=== PATIENT | male | born 1985 | race Caucasian/White ===

== ENCOUNTER 2019-03-01 20:12 | Emergency (ER) | payer SELFPAY ==
[~2019-03-01] VITALS: Ht 167.6 cm; Wt 60.0 kg
[2019-03-01 20:12] VITALS: BP 137/80
[2019-03-03] MEDS ORDERED: IPRATROPIUM 0.5MG/ALBUTEROL 2.5MG INH SOL UD 3ML (DUONEB)(J7620) As Ordered ONE (11:54)
== END 2019-03-01 20:54 | disposition left against medical advice (07) ==
LOC: M ED 20:12
DX: Z53.29 Procedure and treatment not carried out because of patient's decision for other reasons (principal)

== ENCOUNTER 2019-12-16 04:54 | Emergency (ER) | payer SELFPAY ==
[~2019-12-16] VITALS: Ht 167.6 cm; Wt 58.0 kg
[2019-12-16 04:55] VITALS: BP 93/70
== END 2019-12-16 05:51 | disposition left against medical advice (07) ==
LOC: M ED 04:54
DX: Z53.21 Procedure and treatment not carried out due to patient leaving prior to being seen by health care provider (principal)

== ENCOUNTER 2020-05-20 15:28 | Emergency (ER) | payer SELFPAY ==
[~2020-05-20] VITALS: Ht 167.6 cm; Wt 55.7 kg
[2020-05-20 17:30] VITALS: BP 122/73
== END 2020-05-20 17:31 | disposition home or self-care (01) ==
LOC: M ED 15:28
DX: K40.91 Unilateral inguinal hernia, without obstruction or gangrene, recurrent (principal); F31.9 Bipolar disorder, unspecified; J45.909 Unspecified asthma, uncomplicated; F90.9 Attention-deficit hyperactivity disorder, unspecified type; F17.200 Nicotine dependence, unspecified, uncomplicated; F12.10 Cannabis abuse, uncomplicated; Z88.0 Allergy status to penicillin; Z88.8 Allergy status to other drugs, medicaments and biological substances

== ENCOUNTER 2020-12-09 11:50 | Emergency (ER) | payer SELFPAY ==
[~2020-12-09] VITALS: Ht 167.6 cm; Wt 63.5 kg
[2020-12-09 11:51] VITALS: BP 120/68
== END 2020-12-09 14:06 | disposition left against medical advice (07) ==
LOC: M ED 11:50
DX: Z53.21 Procedure and treatment not carried out due to patient leaving prior to being seen by health care provider (principal)

== ENCOUNTER 2020-12-21 13:45 | Emergency (ER) | payer SELFPAY ==
[~2020-12-21] VITALS: Ht 167.6 cm; Wt 58.2 kg
[2020-12-21 13:47] VITALS: BP 134/76
== END 2020-12-21 15:00 | disposition left against medical advice (07) ==
LOC: M ED 13:45
DX: Z53.21 Procedure and treatment not carried out due to patient leaving prior to being seen by health care provider (principal)

== ENCOUNTER 2020-12-31 10:33 | Emergency (ER) | payer MEDICAID, SELFPAY ==
[~2020-12-31] VITALS: Ht 167.6 cm; Wt 59.9 kg
[2020-12-31 10:33] VITALS: BP 145/62
== END 2020-12-31 13:22 | disposition home or self-care (01) ==
LOC: M ED 10:33
DX: F43.0 Acute stress reaction (principal); Z59.0 Homelessness; J45.909 Unspecified asthma, uncomplicated; F17.200 Nicotine dependence, unspecified, uncomplicated; Z88.0 Allergy status to penicillin; Z88.8 Allergy status to other drugs, medicaments and biological substances

== ENCOUNTER 2021-01-02 12:53 | Emergency (ER) | payer SELFPAY ==
[~2021-01-02] VITALS: Ht 167.6 cm; Wt 59.1 kg
[2021-01-02 15:31] LABS: HEMATOCRIT 43.5 % (42.0-52.0); HEMOGLOBIN 14.2 g/dl (13.5-17.5); MEAN CORPUSCULAR HEMOGLOBIN 30.1 pg (27.0-33.0); MEAN CORPUSCULAR HGB CONC 32.6 g/dl (32.0-36.5); MEAN CORPUSCULAR VOLUME 92.4 fl (80.0-96.0); PLATELET COUNT, AUTOMATED 245 10^3/uL (150-450); RED BLOOD COUNT 4.71 10^6/uL (4.30-6.10); WHITE BLOOD COUNT 7.4 10^3/uL (4.0-10.0)
[2021-01-02 15:50] LABS: AMPHETAMINES LEVEL URINE NEGATIVE (NEGATIVE); BARBITURATES URINE NEGATIVE (NEGATIVE); BENZODIAZEPINES URINE NEGATIVE (NEGATIVE); CANNABINOIDS URINE POSITIVE (NEGATIVE); COCAINE METABOLITE URINE NEGATIVE (NEGATIVE); METHADONE URINE NEGATIVE (NEGATIVE); OPIATES URINE NEGATIVE (NEGATIVE); PHENCYCLIDINE URINE NEGATIVE (NEGATIVE)
[2021-01-02 15:59] LABS: ACETAMINOPHEN LEVEL < 2.0 UG/ML (10.0-30.0); ALBUMIN 4.2 GM/DL (3.2-5.2); ALT/SGPT 23 U/L (12-78); BILIRUBIN,DIRECT 0.2 MG/DL (0.0-0.2); BILIRUBIN,TOTAL 0.8 MG/DL (0.2-1.0); BLOOD UREA NITROGEN 13 MG/DL (7-18); CALCIUM LEVEL 9.1 MG/DL (8.5-10.1); CARBON DIOXIDE LEVEL 27 MEQ/L (21-32); CHLORIDE LEVEL 105 MEQ/L (98-107); CREATININE FOR GFR 0.78 MG/DL (0.70-1.30); ETHYL ALCOHOL (ETHANOL) < 0.003 % (0.000-0.010); GLOMERULAR FILTRATION RATE > 60.0 (>60); GLUCOSE, FASTING 72 MG/DL (70-100); POTASSIUM SERUM 4.1 MEQ/L (3.5-5.1); SODIUM LEVEL 138 MEQ/L (136-145); THYROID STIMULATING HORMONE 0.832 uIU/ML (0.358-3.740)
[2021-01-02] MEDS ORDERED: OLANZapine INTRAMUSCULAR 10MG VIAL IM ONE (17:00)
[2021-01-02] MEDS ORDERED: diphenhydrAMINE 50MG/ML VIAL (J1200) IM ONE (17:00)
[2021-01-02] MEDS ORDERED: HALOPERIDOL 5MG/ML VIAL (J1630 PER 1) IM ONE (17:00)
[2021-01-03] MEDS ORDERED: LORazepam 2 MG TAB PO STA (08:37)
[2021-01-03] MEDS ORDERED: OLANZapine ORAL DISINTEGRATING TAB 5MG PO ONE (08:40)
[2021-01-03 09:01] VITALS: BP 93/56
== END 2021-01-03 12:03 | disposition home or self-care (01) ==
LOC: M ED 12:53
DX: F19.10 Other psychoactive substance abuse, uncomplicated (principal); F29 Unspecified psychosis not due to a substance or known physiological condition; F31.9 Bipolar disorder, unspecified; F90.9 Attention-deficit hyperactivity disorder, unspecified type; J45.909 Unspecified asthma, uncomplicated; F17.200 Nicotine dependence, unspecified, uncomplicated; Z88.0 Allergy status to penicillin; Z88.8 Allergy status to other drugs, medicaments and biological substances; Z79.899 Other long term (current) drug therapy

== ENCOUNTER 2021-01-09 12:05 | Emergency (ER) | payer SELFPAY ==
[~2021-01-09] VITALS: Ht 167.6 cm; Wt 54.5 kg
[2021-01-09 12:26] VITALS: BP 144/72
== END 2021-01-09 15:43 | disposition home or self-care (01) ==
LOC: M ED 12:05
DX: F23 Brief psychotic disorder (principal); F17.200 Nicotine dependence, unspecified, uncomplicated; F12.10 Cannabis abuse, uncomplicated; Z88.0 Allergy status to penicillin

== ENCOUNTER 2022-01-30 15:31 | Emergency (ER) | payer SELFPAY ==
[~2022-01-30] VITALS: Ht 167.6 cm; Wt 54.2 kg
[2022-01-30 15:36] VITALS: BP 120/77
== END 2022-01-30 17:47 | disposition left against medical advice (07) ==
LOC: M ED 15:31
DX: Z53.21 Procedure and treatment not carried out due to patient leaving prior to being seen by health care provider (principal)

== ENCOUNTER 2022-02-19 18:50 | Emergency (ER) | payer SELFPAY ==
[~2022-02-19] VITALS: Ht 167.6 cm; Wt 58.6 kg
[2022-02-19 18:51] VITALS: BP 128/75
== END 2022-02-19 21:46 | disposition left against medical advice (07) ==
LOC: M ED 18:50
DX: Z53.21 Procedure and treatment not carried out due to patient leaving prior to being seen by health care provider (principal)

== ENCOUNTER → 2022-03-02 17:37 | Emergency (ER) | payer SELFPAY | END | disposition left against medical advice (07) | LOC: M ED 17:37 | DX: Z53.21 Procedure and treatment not carried out due to patient leaving prior to being seen by health care provider (principal) ==

== ENCOUNTER 2022-03-06 13:48 | Inpatient (IN) | payer SELFPAY ==
[~2022-03-06] VITALS: Ht 167.6 cm; Wt 59.1 kg
[2022-03-06 14:50] LABS: HEMATOCRIT 42.3 % (42.0-52.0); HEMOGLOBIN 13.9 g/dl (13.5-17.5); MEAN CORPUSCULAR HEMOGLOBIN 29.8 pg (27.0-33.0); MEAN CORPUSCULAR HGB CONC 32.9 g/dl (32.0-36.5); MEAN CORPUSCULAR VOLUME 90.8 fl (80.0-96.0); PLATELET COUNT, AUTOMATED 304 10^3/uL (150-450); RED BLOOD COUNT 4.66 10^6/uL (4.30-6.10); WHITE BLOOD COUNT 8.1 10^3/uL (4.0-10.0)
[2022-03-06 15:19] LABS: RSV AMPLIFICATION NEGATIVE (NEGATIVE)
[2022-03-06 16:05] LABS: ACETAMINOPHEN LEVEL < 2.0 UG/ML (10.0-30.0); ALBUMIN 3.8 GM/DL (3.2-5.2); ALT/SGPT 22 U/L (12-78); BILIRUBIN,DIRECT 0.1 MG/DL (0.0-0.2); BILIRUBIN,TOTAL 0.4 MG/DL (0.2-1.0); BLOOD UREA NITROGEN 10 MG/DL (7-18); CALCIUM LEVEL 9.1 MG/DL (8.5-10.1); CARBON DIOXIDE LEVEL 28 MEQ/L (21-32); CHLORIDE LEVEL 105 MEQ/L (98-107); CREATININE FOR GFR 0.78 MG/DL (0.70-1.30); ETHYL ALCOHOL (ETHANOL) < 0.003 % (0.000-0.010); GLOMERULAR FILTRATION RATE > 60.0 (>60); GLUCOSE, FASTING 101 MG/DL (70-100); POTASSIUM SERUM 4.1 MEQ/L (3.5-5.1); SALICYLATE LEVEL 3.8 MG/DL (5.0-30.0); SODIUM LEVEL 138 MEQ/L (136-145); TOTAL PROTEIN 7.3 GM/DL (6.4-8.2)
[2022-03-06 18:19] LABS: AMPHETAMINES LEVEL URINE NEGATIVE (NEGATIVE); BARBITURATES URINE NEGATIVE (NEGATIVE); BENZODIAZEPINES URINE NEGATIVE (NEGATIVE); CANNABINOIDS URINE POSITIVE (NEGATIVE); COCAINE METABOLITE URINE NEGATIVE (NEGATIVE); METHADONE URINE NEGATIVE (NEGATIVE); OPIATES URINE NEGATIVE (NEGATIVE); PHENCYCLIDINE URINE NEGATIVE (NEGATIVE)
[2022-03-06] MEDS ORDERED: NICOTINE 21MG/24HR 1 EA TRANSDERMAL TD ONE (19:20)
[2022-03-06] MEDS ORDERED: LOPERAMIDE 2 MG CAPLET PO ONE (19:20)
[2022-03-07] MEDS ORDERED: HOME MED LIST COMPLETE! XX SCH (08:20)
[2022-03-07] MEDS ORDERED: NICOTINE 21MG/24HR 1 EA TRANSDERMAL TD SCH (09:00)
[2022-03-07] MEDS ORDERED: MOM 30ML SUSPENSION UDC PO PRN (21:40)
[2022-03-07] MEDS ORDERED: traZODone 50 MG TAB PO PRN (21:40)
[2022-03-07] MEDS ORDERED: MAALOX 30 ML SUSP *UDC PO PRN (21:40)
[2022-03-07] MEDS ORDERED: ACETAMINOPHEN TAB 650MG DOSE (2X325MG) PO PRN (21:40)
[2022-03-07] MEDS ORDERED: OLANZapine ORAL DISINTEGRATING TAB 5MG PO PRN (21:40)
[2022-03-07] MEDS ORDERED: LORazepam 1 MG TAB PO PRN (21:40)
[2022-03-07] MEDS: NICOTINE 21MG/24HR 1 EA TRANSDERMAL TD PRN (23:42)
[2022-03-08 06:47] VITALS: BP 123/61
[2022-03-08 18:08] VITALS: BP 121/71
[2022-03-09] MEDS: NICOTINE 21MG/24HR 1 EA TRANSDERMAL TD PRN (05:46)
[2022-03-09 06:15] VITALS: BP 105/62
[2022-03-09] MEDS ORDERED: NICO21PAT TD (10:47)
== END 2022-03-09 13:49 | disposition home or self-care (01) | DRG 755 ==
LOC: M ED 13:48 → M ED INP 03-07 21:39 → M PSY 03-07 23:20
PROVIDERS: ADMIT Student in an Organized Health Care Education/Training Program; ATTEND Student in an Organized Health Care Education/Training Program
DX: F43.10 Post-traumatic stress disorder, unspecified (principal); F12.159 Cannabis abuse with psychotic disorder, unspecified; F17.200 Nicotine dependence, unspecified, uncomplicated; F60.81 Narcissistic personality disorder; Z88.0 Allergy status to penicillin; Z88.8 Allergy status to other drugs, medicaments and biological substances; Z59.02 Unsheltered homelessness; R07.81 Pleurodynia; F60.0 Paranoid personality disorder

== ENCOUNTER 2022-07-04 06:04 | Emergency (ER) | payer SELFPAY ==
[~2022-07-04] VITALS: Ht 167.6 cm; Wt 56.9 kg
[~2022-07-04 06:04] MED LIST: NICO21PAT TD
[2022-07-04 06:05] VITALS: BP 120/69
== END 2022-07-04 07:53 | disposition left against medical advice (07) ==
LOC: M ED 06:04
DX: Z53.21 Procedure and treatment not carried out due to patient leaving prior to being seen by health care provider (principal)